=== PATIENT | male | born 1970 | race Caucasian/White ===

== ENCOUNTER 2017-05-10 10:32 | Day surgery (SDC) | payer BC ==
[2017-05-09 11:52] VITALS: BMI 29.6
[~2017-05-10 10:32] MED LIST: LACTATED RINGERS 1,000 ML IV SCH
[2017-05-10 11:14] VITALS: RESP 18; TEMP 98
[2017-05-10] MEDS ORDERED: IV FLUID CONTINUATION 1,000 ML IV ONE (11:34)
[2017-05-10] MEDS ORDERED: PROPOFOL 10 MG/ML 20 ML VIAL IV ONE (11:42)
--- NOTE | 2017-05-10 12:29 | P.PCN ---
Date of Procedure: 05/10/17 Procedure(s) Performed: Procedures: 1. Esophagogastroduodenoscopy and biopsy. 2. Total colonoscopy. Preoperative diagnosis: Chronic reflux symptoms and rectal bleeding. Postoperative diagnosis: 1. Small sliding hiatal hernia with no obvious esophagitis or complicated reflux disease. 2. Mild gastritis. 3. Diverticulosis of the colon with no evidence of acute diverticulitis or strictures. 4. No polyps or cancer in the colon. 5. Low-grade internal hemorrhoids without bleeding at the time of this exam. Preparation: HalfLytely prep. Sedation: Was provided by anesthesia. Brief clinical history: The patient is a 46-year-old male who I have evaluated in the office recently for rectal bleeding. There is family history of colon cancer in his grandparents. In addition, he gave history of chronic reflux which has recently started to be symptomatic again. The patient had no prior upper or lower endoscopy. Procedure: With the patient on his left lateral decubitus position and after informed consent and adequate sedation, I passed the Olympus-GIF 160 video upper endoscope through the cricopharyngeus down the esophagus. GE junction was around 41 cm from the incisors and there was no definite hiatal hernia or any obvious esophagitis or complicated reflux disease. The endoscope was then passed into the stomach which was insufflated with air and inspected in detail including the retroflex view in the cardia. There was some mottling and erythema in the antrum consistent with mild gastritis but there was no ulcers or gastric outlet obstruction. Pyloric channel, duodenal bulb, post bulbar area and descending duodenum appeared essentially within normal limits. Because of his symptoms, I obtained biopsies from the duodenum, antrum and esophagus then the endoscope was withdrawn and I proceeded with the colonoscopy. Perianal area did not show any fissures or fistulas. There were no masses felt on digital rectal examination. The Olympus CFQ 160L video colonoscope was then inserted in the rectum in the usual fashion and advanced to the cecum. There were multiple small diverticular orifices seen scattered on both the left side and right side with no evidence of acute diverticulitis or strictures. The mucosa appeared healthy. No polyps or tumors were seen. I retroflexed the endoscope in the rectum before the endoscope was withdrawn. Low-grade internal hemorrhoids were noted without evidence of bleeding. The patient tolerated the procedure well. Plan: The patient was reassured. Will await biopsy results. Discussed dietary measures and local care for hemorrhoids. He will follow-up with you as planned and further plans can be made based on his course. I recommended repeat colonoscopy in 10 years. I will be happy to see him in the office of his symptoms recur.
[2017-05-10 12:36] VITALS: BP 140/84; PULSE 63
== END 2017-05-10 12:52 | disposition home or self-care (01) ==
LOC: ORWHC2ENDO 10:32
DX: K29.50 Unspecified chronic gastritis without bleeding (principal); K44.9 Diaphragmatic hernia without obstruction or gangrene; K57.30 Diverticulosis of large intestine without perforation or abscess without bleeding; K64.8 Other hemorrhoids; K62.5 Hemorrhage of anus and rectum
CPT/HCPCS: 88305; 88342; 45378; 43239; J2704